=== PATIENT | male | born 1990 | race Caucasian/White ===

== ENCOUNTER 2024-11-01 11:32 | Observation (INO) | payer SELFPAY ==
--- NOTE | 2024-11-01 11:41 | XR_ITS ---
WS: [id number] Right hand, 3 views, 11/01/2024 Clinical Data: pain swelling Comparison: None. Findings: No fractures or dislocations are seen. The soft tissues are unremarkable. The joint spaces are normal No periarticular demineralization or calcifications are seen. XR/XR hand RT min 3V* [id number] Impression: Negative right hand.
[2024-11-01 11:44] VITALS: BP 148/89; PULSE 87; RESP 17; TEMP 36.7; O2SAT 100; BMI 27.3
--- NOTE | 2024-11-01 11:59 | ED_ITS ---
HPI - Extremity Problem 2 General: Chief complaint: Extremity Problem,Nontraumatic Stated complaint: R hand swollen Time Seen by Provider: 11/01/24 11:41 History of Present Illness: 34-year-old male presents emergency room with complaints of swelling in his right hand mostly over the dorsum of the hand he has not had any direct injury fall or trauma. Because of some pain in the hand this is not swelling it actually makes it difficult for him to flex his fingers. He previously had a boxer's fracture several years ago he is also previous at carpal tunnel. No cuts or puncture wounds trauma injury falls recently. Symptoms began yesterday and continued to swelled into today. Associated symptoms: Deny chest pain, fever(s) or rash Related Data Home Medications ?Medication ?Instructions ?Recorded ?Confirmed aspirin 325 mg tablet (Marco 325 mg PO DAILY 11/01/24 11/01/24 Aspirin) ibuprofen 200 mg tablet (Advil) 600 mg PO Q6H PRN Feve r Or Pain 11/01/24 11/01/24 Allergies Allergy/AdvReac Type Severity Reaction Status Date / Time No Known Allergies Allergy Verified 11/01/24 11:49 Review of Systems 2 Const: Denies: fever(s) or chills Card: Denies: chest pain Resp: Denies: dyspnea GI: Denies: abdominal pain : Denies: dysuria, urinary frequency or urinary urgency Musc: Denies: neck pain or back pain Skin/Breast: Denies: rash PFSH ED 2 PFSH: Social History (Updated 11/01/24 @ 18:10 by Navi Johnson MD) Smoking and tobacco/nicotine status: current every day tobacco/nicotine user cigarettes Packs smoked per day: 0.5 Number of cigarettes per day: 6-10 Alcohol intake: current Alcohol intake frequency: holidays/special occasions only Alcohol use comment: Rare had 2 beers and a airplane sized shot of whiskey last month first time Substance/Drug Use: former Date of last use: 2017 Former substance use details: 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 Additional social history: Patient wants full CODE STATUS as discussed with Navi Johnson MD on 11/01/2024 Physical Exam 2 Const: COMMON NORMALS: no acute distress GENERAL APPEARANCE: cooperative and comfortable ORIENTATION/CONSCIOUSNESS: Yes awake, Yes oriented to person, Yes oriented to place and Yes oriented to time HENMT: COMMON NORMALS: normocephalic, atraumatic and hearing grossly normal bilaterally HEAD & SCALP: normocephalic and atraumatic Resp: COMMON NORMALS: normal respiratory effort, No retractions, No use of accessory muscles and clear to auscultation bilaterally AUSCULTATION: clear to auscultation bilaterally Cardio: COMMON NORMALS: regular rate, regular rhythm and No murmurs present (Cardio) RATE: regular rate RHYTHM: regular rhythm GI: COMMON NORMALS: Soft to palpation and No hepatosplenomegaly present A USCULTATION: Yes normoactive bowel sounds PALPATION: Yes Soft to palpation, No Tenderness to palpation present (GI), No Guarding due to palpation present (GI) and Yes No hepatosplenomegaly present Extremity: OTHER: Marked swelling of the dorsum of the right hand. No puncture wounds or abrasions noted no lacerations. No swelling in the forearm no epitrochlear lymph nodes or axillary lymph nodes on the right. Patient has pain with flexion of the fingers. No passive range of motion no signs of compartment syndrome. Neuro: SENSORIUM/ORIENTATION: Yes oriented to person, Yes oriented to place and Yes oriented to time Skin: COMMON NORMALS: no rashes or lesions noted GENERAL SKIN EXAM: no rashes or lesions noted Course 2 Vital Signs: Vital signs: Vital Signs Temperature 98.3 F 11/02/24 04:00 Pulse Rate 86 11/02/24 04:00 Respiratory Rate 16 11/02/24 04:00 Blood Pressure 118/76 11/02/24 04:00 Pulse Oximetry 98 11/02/24 04:00 Oxygen Delivery Me thod Room Air 11/01/24 20:00 MDM - Extremity (Nontraumatic) Medical Decision Making Localized infection to the hand. CT appears to have cellulitis white count is normal. CRP is very minimally elevated. Patient does have very impressive swelling in the dorsum of the hand there is no history of any trauma x-ray was negative for acute fracture. On the CT there does appear to be involvement of deep interosseous structures but there is no fluid collections or abscess is identifiable. Called and discussed with on-call hand surgery at [facility]. At this point they would treat medically only. After reviewing the imaging themselves they did not feel that this was a surgical case. Discussed with her hospitalist will admit patient has been cultured and started on vancomycin. And surgery advised if worsens or develops abscess on reimaging they would be happy to receive for transfer. Hospitalist is agreeable to admission orders written Medical Records I reviewed the patient's medical records. Lab Data I reviewed the patient's lab results. 11/01/24 12:32 11/01/24 12:32 Radiology Impressions Hand X-Ray 11/01/24 11:41 Impression: Negative right hand. Hand CT 11/01/24 12:30 IMPRESSION: 1. Cellulitis with deep soft tissue infection extending along the tendon sheaths and carpal tunnel described above. 2. No drainable abscess or drainable fluid collection. Notified Alvaro Garcia DO at 11/01/2024 1:40 PM. Laboratory Results WBC 7.90 10^3/uL (3.29-11.43) 11/01/24 12:32 RBC 5.21 10^6/uL (3.85-5.65) 11/01/24 12:32 Hgb 15.60 g/dL (11.27-16.99) 11/01/24 12:32 Hct 46.0 % (37-53) 11/01/24 12:32 MCV 88.3 fl (82-101) 11/01/24 12:32 MCH 29.9 pg (27-33) 11/01/24 12:32 MCHC 33.9 g/dL (30-55) 11/01/24 12:32 RDW 13.1 % (12.1-15.1) 11/01/24 12:32 Plt Count 330 10^3/cmm (157-399) 11/01/24 12:32 MPV 9.7 fL (7.4-10.4) 11/01/24 12:32 Neut % (Auto) 63.4 % 11/01/24 12:32 Lymph % (Auto) 20.5 % 11/01/24 12:32 [place] % (Auto) 11.5 % 11/01/24 12:32 Eos % (Auto) 3.3 % 11/01/24 12:32 Baso % (Auto) 1.0 % 11/01/24 12:32 Neut # (Auto) 5.01 10^3/uL (1.8-7.7) 11/01/24 12:32 Lymph # (Auto) 1.6 10^3/uL (0.8-4.8) 11/01/24 12:32 [place] # (Auto) 0.9 10^3/uL (0.2-0.9) 11/01/24 12:32 Eos # (Auto) 0.3 10^3/uL (0.0-0.8) 11/01/24 12:32 Baso # (Auto) 0.1 10^3/uL (0.0-0.1) 11/01/24 12:32 Nucleated RBC % (auto) 0 % 11/01/24 12:32 Nucleated RBCs # 0.0 /100WBC 11/01/24 12:32 Sodium 138 mmol/L (136-145) 11/01/24 12:32 Potassium 3.7 mmol/L (3.5-5.1) 11/01/24 12:32 Chloride 100 mmol/L (98-107) 11/01/24 12:32 Carbon Dioxide 25 mmol/L (22-29) 11/01/24 12:32 Anion Gap 16.7 (5-19) 11/01/24 12:32 BUN 18 mg/dL (6-20) 11/01/24 12:32 Creatinine 0.9 mg/dL (0.7-1.2) 11/01/24 12:32 GFR Calculation 97.2 mL/min (90-130) 11/01/24 12:32 Glucose 80 mg/dL (65-115) 11/01/24 12:32 Calculated Osmolality 287 mOsm/kg (285-295) 11/01/24 12:32 Calcium 10.1 mg/dL (8.5-10.5) 11/01/24 12:32 Total Bilirubin 0.6 mg/dL (0.15-1.2) 11/01/24 12:32 AST 16 U/L (0-40) 11/01/24 12:32 ALT 19 U/L (0-41) 11/01/24 12:32 Alkaline Phosphatase 72 U/L (40-130) 11/01/24 12:32 C-Reactive Protein 5.4 mg/L (0.0-4.9) H 11/01/24 12:32 Total Protein 8.3 g/dL (6.6-8.7) 11/01/24 12:32 Albumin 4.8 g/dL (3.5-5.2) 11/01/24 12:32 Globulin 3.5 g/dL (1.3-4.6) 11/01/24 12:32 All radiology interpretation(s) finalized by discharge Discharge Plan Discharge Patient Disposition: Placed in Observation Admit Provider: Navi Johnson Clinical Impression: Cellulitis of hand, right Coding Level of Care Code ED Assistant [employer] for Sherri Dick
--- NOTE | 2024-11-01 12:30 | CT_ITS ---
WS: [id number] Contrast-enhanced CT RIGHT hand TECHNIQUE: Contrast-enhanced CT RIGHT hand with coronal and sagittal reformatted images. CLINICAL INFORMATION: Pain swelling COMPARISON: None. DLP: 132.[address] scans at [facility] use at least one of these dose optimization techniques: automated exposure control; mA and/or kV adjustment per patient size (includes targeted exams where dose is matched to clinical indication); or iterative reconstruction. FINDINGS: Diffuse soft tissue edema with induration compatible with cellulitis centered in the dorsal soft tissues. This extends from the distal radius into the phalanges. Soft tissue edema worse overlying the carpal bones and metacarpals. Fluid and soft tissue edema extends along the extensor retinaculum and the extensor tendon sheaths. Induration and fluid extends into the carpal tunnel as well as a small amount of induration along the flexor tendon sheaths. No evidence of bony destruction to indicate osteomyelitis. No drainable abscess or fluid collection. CT/CT hand RT w con [id number] IMPRESSION: 1. Cellulitis with deep soft tissue infection extending along the tendon sheat hs and carpal tunnel described above. 2. No drainable abscess or drainable fluid collection. Notified Alvaro Garcia DO at 11/01/2024 1:40 PM.
[2024-11-01 12:39] LABS: Hematocrit 46.0 % (37-53); Hemoglobin 15.60 g/dL (11.27-16.99); Mean Corpuscular HGB Conc 33.9 g/dL (30-55); Mean Corpuscular Hemoglobin 29.9 pg (27-33); Mean Corpuscular Volume 88.3 fl (82-101); Nucleated Red Blood Cells % 0 %; Platelet Count 330 10^3/cmm (157-399); Red Blood Count 5.21 10^6/uL (3.85-5.65); White Blood Count 7.90 10^3/uL (3.29-11.43)
[2024-11-01 12:56] LABS: Alanine Aminotransferase 19 U/L (0-41); Albumin Level 4.8 g/dL (3.5-5.2); Alkaline Phosphatase 72 U/L (40-130); Anion Gap 16.7 (5-19); Aspartate Amino Transferase 16 U/L (0-40); Blood Urea Nitrogen 18 mg/dL (6-20); Calcium 10.1 mg/dL (8.5-10.5); Carbon Dioxide 25 mmol/L (22-29); Chloride 100 mmol/L (98-107); Creatinine Clr Calc Pharmacy 121.6940; Globulin 3.5 g/dL (1.3-4.6); Glucose 80 mg/dL (65-115); Osmolality Calculated 287 mOsm/kg (285-295); Potassium 3.7 mmol/L (3.5-5.1); Sodium 138 mmol/L (136-145); Total Protein 8.3 g/dL (6.6-8.7)
[2024-11-01] MEDS: iohexol 350 mg/mL 500 mL Btl (per mL) IV (13:07)
[2024-11-01 13:59] VITALS: BP 145/74; PULSE 64; O2SAT 94
[2024-11-01 14:58] VITALS: BP 136/82; PULSE 67; O2SAT 99
[2024-11-01 15:21] VITALS: BMI 29.9
[2024-11-01 15:30] VITALS: BP 133/84; PULSE 97; RESP 18; TEMP 36.7; O2SAT 97
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
[2024-11-01 20:00] VITALS: BP 122/78; PULSE 86; RESP 16; TEMP 36.4; O2SAT 98
[2024-11-01 22:26] LABS: MRSA PCR OZH (swab) NOT DETECTED (Negative)
[2024-11-02] VITALS: BP 121/73; PULSE 86; RESP 17; TEMP 36.8; O2SAT 96
[2024-11-02 04:00] VITALS: BP 118/76; PULSE 86; RESP 16; TEMP 36.8; O2SAT 98
[2024-11-02 07:38] VITALS: BP 119/70; PULSE 89; RESP 16; TEMP 36.5; O2SAT 97
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
--- NOTE | 2024-11-02 11:21 | PC.NURSE ---
Patient stated that he and his girlfriend just moved here and they are going to go together to set up a primary care so he will take care of scheduling follow up appointments.
[2024-11-02 11:49] VITALS: BP 119/70; PULSE 89; RESP 16; TEMP 36.5; O2SAT 97
== END 2024-11-02 12:36 | disposition home or self-care (01) ==
LOC: ER 12:00 → MEDSURG 14:51
PROVIDERS: Admitting Provider Internal Medicine; Emergency Provider Family Medicine; Visit Provider Internal Medicine
DX: R22.31 Localized swelling, mass and lump, right upper limb (principal); F17.210 Nicotine dependence, cigarettes, uncomplicated; Z79.82 Long term (current) use of aspirin
CPT/HCPCS: 36415; 73130; 73201; 80053; 85025; 86140; 87040; 96365; 96367; 96372; 96375; 99285; G0378; J1650; J1885; J3373; J3490; J7050; J8540

== ENCOUNTER 2024-12-30 12:12 | Emergency (ER) | payer SELFPAY ==
--- OUTSIDE RECORDS SUMMARY | 2024-12-30 12:19 | XMS_ITS | Patient Health Record ---
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 Name Role Phone Reynold Valdivia Primary Care Provider [phone] Allergies No Known Allergies Results Component Value Reference Range Notes ECG Reviewed date:11/21/2024 09:10:29 AM Interpretation:Not Tracking Performing Lab: Notes/Report: Not Tracking Reason For Referral No Information Medications Medication SIG (Take, Route, Frequency, Duration) Notes Start Date End Date Status Nicotine Step 2 14 MG/24HR Patch 24 Hour 1 patch to skin Transdermal Once a day; Duration: 30 day(s) Active hydrOXYzine HCl 25 MG Tablet 1 tablet as needed Orally Once a day; Duration: 30 days 11/20/2024 Active Albuterol Sulfate HFA 108 (90 Base) MCG/ACT Aerosol Solution 1 puff as needed Inhalation every 4 hrs; Duration: 30 days 11/20/2024 Active Social History Tobacco Use: Social History Observation Description Date Details (start date - stop date) Current Smoker 02/22/2007 - NA Sex Assigned At : Social History Observation Description Sex Assigned At Male Social History Social History Social Info Question Answer Notes Health Literacy Screening Co mplete (18+) Health Literacy Screening Completed: Yes Date Completed: 11/20/2024 How often do you need to have someone help you when you read instructions, forms or other written material from your doctor or pharmacy?: 1- Never ITALO-7 (2018 Edition) Feeling nervous, anxious, or on e dge Several days Not being able to stop or control worrying Not a t all Worrying too much about different things Several days Trouble relaxing More than half the days Being so restless that it is hard to sit still S everal days Becoming easily annoyed or irritable Not at all Feeling afraid as if something awful might happe n Several days Total ITALO-7 Score 6 If you checked any problems, how difficult have they made it for you to do your work, take care of things at home, or get along with other people? Not difficult at all Interpretation of Total (5 to 9) Mild Smoking Status (12+) Tobacco use: Current smoker When did you start smoking? 02/22/2007 How often do you smoke cigarettes? Every day How many cigarettes a day do you smoke? 5 or less Recreational Drug Use (12+) In the last year, did you ever use recreational drugs or prescription drugs for non-medical reasons?: Yes What kind of recreational drugs? Marijuana In the last year, did you ever find yourself using drugs more than you meant to?: No In the last year, did you ever think maybe you should cut down on drug use?: No Date counseled on the affects of recreational dr ug use 11/20/2024 Alcohol Screening (12+) Did you have a d rink containing alcohol in the past year? Yes How often did you have six or more drinks on one occasion in the past year? Never (0 point) How many drinks did you have on a typical day when you were drinking in the past year? 1 or 2 drinks (0 point) How often did you have a drink containing alcohol in the past year? Monthly or less (1 point) Points 1 Interpretation Negative Date of Last PHQ-9 Date of Last PHQ 11/20/2024 Date of Tobacco Screening Date of Tobacco Screening Positive Alcohol Use: Positive Audit-C ( Alcohol) Screening?: No Depression Follow up Is the PHQ score 10+? No Depression Screening PHQ-9 ( If positive PHQ-2) Little interest or pleasure doing things? Not at all Feeling down, depressed, or hopeless? Not at all Trouble falling or staying asleep, or sleeping t oo much? Several days Feeling tired or having little energy? Several d ays Poor appetite or overeating? Several days Feeling bad about yourself-o r that you are failure or have let yourself or family down? More than half the days Trouble concentrating on thi ngs, such as reading the newspaper or watching television? Not at all Moving or speaking so slowly that other people could have noticed. Or the opposite- being so fidgety or restless that you have been moving around a lot more than usual Several days Thoughts that you would be b fabiano off , or of hurting yourself in some way? Not at all Total Score 6 Intepretation Mild Depression Date of Last PHQ-2 (12+) Date of Last PHQ-2 11/20/2024 PHQ2 (12+) Little interest or pleasure in doing thin gs? Not at all Feeling down, depressed, or hopeless? Not at all Total Score 0 Problems Problem Type SNOMED Code ICD Code Onset Dates Problem Status W/U Status Risk Notes Problem Anxiety (86043590) Anxiety (F41.9) Active confirmed Problem Tobacco user (565564650) Cigarette nicotine dependence without complication (F17.210) Active confirmed Problem Mild recurrent major depression (40915239) Mild episode of recurrent major depressive disorder (F33.0) Active confirmed Problem Paresthesia of right upper extremity ([id number]) Paresthesia of right upper extremity (R20.2) Active confirmed Vital Signs Heart Rate 115 Minute 11/20/2024 Temperature 98 degrees Fahrenheit 11/20/2024 Respiratory Rate 18 /min 11/20/2024 Oximetry 98 Percent 11/20/2024 Blood pressure diastolic 82 mm Hg 11/20/2024 Height 65 in 11/20/2024 Blood pressure systolic 128 mm Hg 11/20/2024 Weight 190 lbs 11/20/2024 BMI 31.61 kg/m2 11/20/2024 Encounters Encounter Location Date Provider Diagnosis [address] [id number] 11/20/2024 Reynold Valdivia Mild episode of recurrent major depressive disorder F33.0 ; Anxiety F41.9 ; Palpitations R00.2 ; Wheezing R06.2 ; Cigarette nicotine dependence without complication F17.210 and Swelling of right hand M79.89 Assessments Encounter Date Diagnosis (ICD Code) Assessment Notes Treatment Notes Treatment Clinical Notes Section Notes 11/20/2024 Mild episode of recurrent major depressive disorder (ICD-10 - F33.0) PHQ9 6. Doesnt feel like he needs medication at this time. Discussed importance of exercises as tolerated, time in the sun, starting daily MV, increaseing fruits and vegetables and making healthier food choices, interact with a positive supportive friend, attend a local cheondoism, pray/read the Bible daily, seek or attend counseling, avoid alcohol and drug use if applicable. If you have any thoughts of wanting to harm yourself, go to the ER. Otherwise follow up in clinic for new or worsening symptoms. 11/20/2024 Anxiety (ICD-10 - F41.9) Use Vistaril as needed for anxiety, return to clinic with new or worsening symptoms. Self-care : General Anxiety Disorder Other than taking medicine and going to therapy, you can help yourself get better by: 1 Reducing caffeine [address] 3 Exercising, getting enough rest, and eating healthy foods 4 Consider Talk therapy 5 Consider Group therapy 11/20/2024 Palpitations (ICD-10 - R00.2) ECG: rate 116, sinus tach, no st elevation or depression. 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 Go to the ER with respiratory distress. 11/20/2024 Cigarette nicotine dependence without complication (ICD-10 - F17.210) I encouraged patient to stop smoking and educated the risks of smoking with them. They understand the risks and understand they should stop. I offered them assistance to stop and also gave them information on [id number]. 11/20/2024 Swelling of right hand (ICD-10 - M79.89) Return to clinic with new or worsening symptoms. Plan Of Treatment No Information Medical (General) History Surgical History Surgery Date(Month/Year) Tonsillectomy 1996 Broken jaw, wired shut 2011 Hospitalization History Reason Date(Month/Year) Right Hand CTS / [facility] 05.21.2 023 [facility] - Periorbital Cellulits 2021 see surgical history mouth problem/[facility]-Right hand swelling 10/2024
[2024-12-30 12:30] VITALS: BP 130/79; PULSE 101; RESP 18; TEMP 36.6; O2SAT 97; BMI 29.8
[2024-12-30 15:17] VITALS: BP 111/86; O2SAT 97
--- NOTE | 2024-12-30 15:23 | ED_ITS ---
HPI - Skin/Abscess/Foreign Bdy General: Chief complaint: Skin/Abscess/Foreign Body Stated complaint: lump Lt armpit Time Seen by Provider: 12/30/24 14:40 Source: patient Mode of arrival: ambulatory Limitations: no limitations History of Present Illness: Patient is a 34-year-old male presents emergency department with lesion to left arm. States that he thinks he has a staph infection, began last night but has worsened throughout the day. Pain is a 7/10, he notes some surrounding redness to the area. No drainage is noted. No fever, nausea/vomiting, or any other symptoms of systemic illness. MD complaint: lesion Onset (ago): day(s) Location: LUE Associated symptoms: Deny chills, fever(s), nausea or vomiting Related Data Home Medications ?Medication ?Instructions ?Recorded ?Confirmed aspirin 325 mg tablet (Marco 325 mg PO DAILY 11/01/24 11/01/24 Aspirin) Previous Rx's ?Medication ?Instructions ?Recorded acetaminophen 325 mg tablet 650 mg (2 x 325 mg) PO Q6H PRN 11/02/24 Mild/Mod Pain Or Temp >/= 101 #100 tabs clindamycin HCl 300 mg capsule 300 mg PO QID #30 caps 11/02/24 (Cleocin HCl) dexamethasone 4 mg tablet 4 mg PO BID #6 tabs 11/02/24 ibuprofen 200 mg tablet (Advil) 600 mg (3 x 200 mg) PO BID PRN 11/02/24 Fever Or Pain #100 tabs clindamycin HCl 300 mg capsule 300 mg PO BID 7 days #1 4 caps 12/30/24 Allergies Allergy/AdvReac Type Severity Reaction Status Date / Time No Known Allergies Allergy Verified 11/01/24 11:49 Review of Systems General: Reports: 10 or more systems reviewed and unremarkable except in HPI and below Const: Denies: fever(s) or chills Card: Denies: chest pain Resp: Denies: dyspnea GI: Denies: abdominal pain, nausea, vomiting or diarrhea Musc: Denies: extremity pain or joint pain Skin/Breast: Reports: erythema, skin pain, skin tenderness and new lesions (left axilla); Denies: rash Neuro: Denies: headache(s) PFS ED PFSH: Medical History Nicotine dependence Social History Smoking and tobacco/nicotine status: current every day tobacco/nicotine user cigarettes Packs smoked per day: 0.5 Alcohol intake: current Alcohol intake frequency: holidays/special occasions only Substance/Drug Use: former Date of last use: 2017 Former substance use details: 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 Additional social history: Patient wants full CODE STATUS as discussed with Navi Johnson MD on 11/01/2024 Physical Exam Const: COMMON NORMALS: no acute distress, average body habitus, patient oriented x3, no limitations, healthy appearing, alert and well nourished HENMT: COMMON NORMALS: normocephalic and atraumatic HEAD & SCALP: normocephalic and atraumatic Neck/C-Spine: COMMON NORMALS: full ROM, no lymphadenopathy, supple and no meningeal signs Resp: COMMON NORMALS: normal respiratory effort, No use of accessory muscles and clear to auscultation bilaterally AUSCULTATION: clear to auscultation bilaterally Cardio: COMMON NORMALS: regular rate and regular rhythm RATE: regular rate RHYTHM: regular rhythm Extremity: COMMON NORMALS: full ROM and capillary refill normal Neuro: COMMON NORMALS: patient oriented x3 SENSORIUM/ORIENTATION: Yes alert MENINGEAL SIGNS: Yes no meningeal signs Skin: COMMON NORMALS: turgor normal NARRATIVE SKIN EXAM: Induration to left axillary region with surrounding erythema. No fluctuance. GENERAL SKIN EXAM: turgor normal Course Vital Signs: Vital signs: Vital Signs Temperature 97.8 F 12/30/24 12:30 Pulse Rate 101 H 12/30/24 12:30 Respiratory Rate 18 12/30/24 12:30 Blood Pressure 111/86 12/30/24 15:17 Pulse Oximetry 97 12/30/24 15:17 Oxygen Delivery Me thod Room Air 12/30/24 15:17 MDM - Skin/Abscess/Foreign Bdy Medicial Decision Making This patient with signs of what appears to be folliculitis with some surrounding erythema, will treat with clindamycin. No systemic symptoms of illness and clinically nontoxic-appearing. Return precautions given. No radiology studies performed this visit Discharge Plan Discharge Patient Disposition: Home Clinical Impression: Folliculitis Condition: Stable Prescriptions: New clindamycin HCl 300 mg capsule 300 mg PO BID 7 Days Qty: 14 0RF No Action aspirin [Marco Aspirin] 325 mg Tablet 325 mg PO DAILY acetaminophen 325 mg Tablet 650 mg PO Q6H PRN (Reason: Mild/Mod Pain Or Temp >/= 101) Qty: 100 0RF dexamethasone 4 mg Tablet 4 mg PO BID Qty: 6 0RF clindamycin HCl [Cleocin HCl] 300 mg capsule 300 mg PO QID Qty: 30 0RF Rx Instructions: take until gone ibuprofen [Advil] 200 mg Tablet 600 mg PO BID PRN (Reason: Fever Or Pain) Qty: 100 0RF Discharge Orders: Discharge ED (Routine); Ordered 12/30/24 Ordered By: Christos Ramesh Patient Instructions: Patient Portal & Oriana Instructions Activity Restrictions/Additional Instructions: Clindamycin Instructions You have been prescribed clindamycin to treat a skin infection with redness (erythema) in your left axillary region. Please follow these instructions carefully: - Take clindamycin exactly as prescribed. Do not skip doses, and complete the full course even if you start feeling better. This helps ensure the infection is fully treated and reduces the risk of bacteria becoming resistant. - Dosage: Take the medication twice daily for one week, as directed by your healthcare provider. - Administration: Swallow each capsule with a full glass of water to help prevent throat irritation. - Common side effects may include stomach pain, nausea, vomiting, diarrhea, and an unusual or metallic taste. If you experience mild diarrhea, it often resolves after stopping the medication. However, if you develop watery or bloody stools, severe stomach cramps, or fever, contact your healthcare provider immediately, as this could be a sign of a serious intestinal problem. - Skin reactions: Some people may develop a rash, itching, or other skin changes. If you notice a rash, swelling, or difficulty breathing, stop the medication and seek medical attention right away. - Allergic reactions: Rarely, clindamycin can cause severe allergic reactions. If you have a history of allergies, especially to medications or dyes (such as FD&C yellow no. 5/tartrazine), inform your healthcare provider. - Other precautions: Let your provider know if you have a history of gastrointestinal disease, especially colitis, or if you are . - Missed dose: If you miss a dose, take it as soon as you remember. If it is almost time for your next dose, skip the missed dose?do not double up. - Storage: Store clindamycin at room temperature, away from moisture and heat. If you have any questions or concerns during your treatment, contact your a [facility] provider. Print Language: Bulgarian Coding Level of Care Code ED Air Transportation Provider for Sherri Dick
== END 2024-12-30 15:38 | disposition home or self-care (01) ==
PROVIDERS: Emergency Provider Physician Assistant
DX: L73.9 Follicular disorder, unspecified (principal); Z79.82 Long term (current) use of aspirin; F17.210 Nicotine dependence, cigarettes, uncomplicated
CPT/HCPCS: 99283